=== PATIENT | female | born 1995 | race Caucasian/White ===

== ENCOUNTER 2020-11-20 15:11 | Emergency (ER) | payer BC ==
[~2020-11-20] VITALS: Ht 162.6 cm; Wt 69.8 kg
[2020-11-20 16:30] LABS: BASO % 0.5 % (0.0-1.0); EOS # 0.1 10^3/uL (0.0-0.5); EOS % 0.8 % (0.0-3.0); HEMATOCRIT 45.5 % (36.0-47.0); HEMOGLOBIN 15.7 g/dl (12.0-15.5); LYMPH # 1.6 10^3/uL (1.5-5.0); LYMPH % 21.6 % (24.0-44.0); MEAN CORPUSCULAR HEMOGLOBIN 30.1 pg (27.0-33.0); MEAN CORPUSCULAR HGB CONC 34.5 g/dl (32.0-36.5); MEAN CORPUSCULAR VOLUME 87.3 fl (80.0-96.0); MONO # 0.3 10^3/uL (0.0-0.8); MONO % 4.3 % (2.0-8.0); NEUTROPHILS # 5.3 10^3/uL (1.5-8.5); NEUTROPHILS % 72.4 % (36.0-66.0); PLATELET COUNT, AUTOMATED 214 10^3/uL (150-450); RED BLOOD COUNT 5.21 10^6/uL (4.00-5.40); WHITE BLOOD COUNT 7.4 10^3/uL (4.0-10.0)
[2020-11-20 18:05] LABS: CK-MB VALUE MASS < 1.0 NG/ML (<3.6); CPK CREATINE PHOSPHOKINASE 49 U/L (26-192); MB/CK RELATIVE INDEX 2.04 (< OR =4); TROPONIN I < 0.02 NG/ML (< 0.10)
--- NOTE | 2020-11-20 18:08 | REP ---
INDICATION: sob with exertion COMPARISON: None. TECHNIQUE: PA/Lateral FINDINGS: Lungs: Clear, no infiltrate. Heart: Normal in size. Mediastinum: Mediastinal silhouette unremarkable. Pleural angles: Unremarkable.. Bones and soft tissues: Unremarkable. IMPRESSION: No acute pulmonary disease. <Electronically signed by Eric Toro > 11/20/20 [id number]
[2020-11-20] MEDS ORDERED: MECL1TAB31 PO (19:25)
[2020-11-20 20:05] VITALS: BP 140/77
--- NOTE | 2020-11-21 06:40 | ECGEPIP ---
[facility] - ED Test Date: 2020-11-20 Pat Name: HECTOR ORDONEZ Department: Room: - Gender: Female [employer]: ed : 1995 Requested By: GERDA Tamayo PA-C Order Number: [id number] Reading MD: Pebbles Porter Measurements Intervals [place] Rate: 73 P: 69 ID: [id number] QRS: 83 QRSD: 84 T: 53 QT: 380 QTc: 418 Interpretive Statements Normal sinus rhythm Nonspecific ST T wave changes Delayed R wave progression No prior ECG for comparison Electronically Signed on 11-21-2020 6:40:00 EDT by Pebbles Porter
== END 2020-11-20 20:21 | disposition home or self-care (01) ==
LOC: M ED 15:11
DX: H81.4 Vertigo of central origin (principal); R53.1 Weakness; F31.9 Bipolar disorder, unspecified; Z97.5 Presence of (intrauterine) contraceptive device